=== PATIENT | male | born 1955 | race Caucasian/White ===

== ENCOUNTER 2017-03-04 05:37 | Observation (INO) | payer BC ==
[~2017-03-04] VITALS: Ht 177.8 cm; Wt 94.0 kg
[2017-03-06] MEDS ORDERED: THERA1 EACH PO (10:23)
[2017-03-06] MEDS ORDERED: BREO ELLIP1 PUFF/DOS IH (10:23)
[2017-03-06] MEDS ORDERED: PRILOSEC DPS20 MG PO (10:23)
[2017-03-06] MEDS ORDERED: CLARITIN-D 121 EACH PO (10:23)
[2017-03-06] MEDS ORDERED: NORCO 5-325 TA1 EACH PO (10:24)
[2017-03-06] MEDS ORDERED: MONTELUKAST SOD10 MG PO (10:24)
[2017-03-06] MEDS ORDERED: ZOFRAN8 MG PO (10:24)
--- NOTE | 2017-03-08 11:37 | OR ---
ADMIT: 03/04/2017 RM/LOC: [facility] MR#: [id number] [address] [id number] ASHER, TERRI Elvis [address] [place] [id number] Operative/Delivery Room Report SEX: M AGE: 61 : 1955 SURGERY DATE: 03/04/2017 SURGEON: Song Ta MD PREOPERATIVE DIAGNOSIS: Hiatal hernia with refractory gastroesophageal reflux disease. POSTOPERATIVE DIAGNOSIS: Hiatal hernia with refractory gastroesophageal reflux disease. PROCEDURES: Laparoscopic hiatal hernia repair and floppy Zev fundoplication. STAFFING ANALYST: Lew Carrillo MD, whose assistance was necessary for laparoscopic visualization and tissue retraction. ANESTHESIA: General endotracheal. ESTIMATED BLOOD LOSS: 10 mL. DESCRIPTION OF PROCEDURE: The patient was taken to the operating room and placed supine on the operating room table. General anesthesia was established. The abdomen was prepped and draped in the standard surgical fashion. A 1 cm supraumbilical incision was made in the skin. The fascia was grasped with Henry clamp and a Veress needle was advanced into the peritoneal cavity. Carbon dioxide was used to insufflate the abdomen to 15 mmHg pressure. The Veress needle was withdrawn, and a 1-cm trocar was placed. Laparoscope was advanced and showed intraperitoneal position with no damage to underlying structures. Next, 5-mm left upper quadrant and left lateral ports were placed under visualization. Adhesions to the anterior abdominal wall were taken down with Harmonic scalpel. Additional adhesions of the left lobe of the liver of the antrum were freed with Harmonic. An additional right upper quadrant 5-mm port and a subxiphoid 5-mm port were placed under visualization. The August liver retractor was advanced and used for retraction of the left lobe of the liver. The gastrohepatic ligament was divided in the pars flaccida area to expose the right crura. Harmonic scalpel was used for this dissection. The right crura was then dissected from its peritoneal and hernia sac attachments. The dissection proceeded into the mediastinum along the right crura and anteriorly to its junction with the left crura. The stomach and hernia sac were reduced. Dissection proceeded over to the left crura additionally posteriorly. Next, the fundus was mobilized with division of the short gastric vessels with Harmonic scalpel. This allowed complete exposure of the left crura and reduction of the stomach with adequate intraabdominal esophageal length. Anterior and posterior vagus nerves were identified and preserved. A crural repair was then performed with 0 Surgidac suture in a [id number] fashion and the Endo stitch device. Three separate sutures were used for good approximation of the crura. This crural closure was without tension. Next a floppy 360 degree fundoplication was performed. A posterior fundal limb was brought and secured to an anterior ADMIT: 03/04/2017 RM/LOC: [facility] MR#: [id number] [address] [place] [id number] [place] [address] Operative/Delivery Room Report SEX: M AGE: 61 : 1955 limb at the gastroesophageal junction. This was secured at this level with 0 Surgidac suture and the Endo Stitch device. Three separate sutures were used with 2 of these incorporating partial thickness bites at the gastroesophageal junction to maintain fixation of the wrap. No torsion or tension was present upon completion of the wrap. The August liver retractor was withdrawn with no signs of trauma. The ports were removed under visualization without signs of trauma. The fascial margin at the 11-mm port site was approximated with 0 Vicryl suture and the suture passer. The abdomen was allowed to deflate. Skin edges were approximated with 4-0 Monocryl in a subcuticular fashion and Dermabond. Local anesthetic was injected at the incisions. Sponge, needle, and instrument counts were correct at the end of the case. The patient tolerated the procedure well and transferred to the recovery area in stable condition. Song Ta MD/ su JOB #: [id number] CC: Song Ta, Attending Physician Chris Awad, Family Physician
== END 2017-03-05 09:44 | disposition home or self-care (01) ==
LOC: SSS 05:37 → 6PED 12:00 → SSS 14:22 → 6PED 18:45
PROVIDERS: ADMIT Surgery
PROC: 0BQS4ZZ (ICD-10-PCS; principal; 2017-03-04)
DX: K44.9 Diaphragmatic hernia without obstruction or gangrene (principal); K21.9 Gastro-esophageal reflux disease without esophagitis; G47.30 Sleep apnea, unspecified; J45.909 Unspecified asthma, uncomplicated; Z79.899 Other long term (current) drug therapy; Z98.890 Other specified postprocedural states